=== PATIENT | female | born 1940 | race Native Hawaiian/Other Pacific Islander ===

== ENCOUNTER 2022-03-24 11:38 | Emergency (ER) | payer MEDICARE, OTHER ==
[~2022-03-24] VITALS: Ht 154 cm; Wt 68.0 kg
[2022-03-24 11:45] VITALS: BP 140/73
[2022-03-24] MEDS ORDERED: CYCLOBENZAPRINE 10 MG (FLEXERIL) TAB PO STA (12:04)
--- NOTE | 2022-03-24 12:04 | ED Back Pain ---
General Chief Complaint: Back Problems Stated Complaint: BACK PAIN Nursing Triage Note: Patient has presented to ER by wheel chair with back pain for the last 2 weeks. Patient reports that she just moved to [place] and she was moving boxes 2 weeks ago when her back pain started. She did take tylenol last night for the pain. She has not established with a local doctor and came to ER for evaluation. Source of Information: Patient Exam Limitations: No Limitations History of Present Illness Date Seen by Provider: Mar 24, 2022 Time Seen by Provider: 11:39 Initial Comments 81yoF with PMH of GERD, osteoporosis coming in due to low back pain. 3 weeks ago was moving houses and lifting boxes. She "twisted" wrong and has had pain since then that is intermittent, shooting, severe pain, and nothing seems to really he lp. Tried tylenol and ibuprofen which helped little. Laying flat makes worse. Denies any n/v/d, numbness, bowel, bladder issues. She has had to use a walker due to pain since then. Allergies and Home Medications Allergies Coded Allergies: NSAIDS (Non-Steroidal Anti-Inflamma (Verified Allergy, Unknown, 03/24/22) Patient Home Medication List Home Medication List Reviewed: Yes Cyclobenzaprine HCl (Cyclobenzaprine HCl) 5 Mg Tablet, 5 MG PO TID PRN for SPASMS Prescribed by: GINI CASTELLON on 03/24/22 1222 Lidocaine (Lidocaine 5% Patch) 5 % Adh..patch, 1 EACH TP Q12H PRN for Neuropathic pain Prescribed by: GINI CASTELLON on 03/24/22 1218 Review of Systems Constitutional: No fever EENTM: No blurred vision Respiratory: No cough Cardiovascular: No chest pain Gastrointestinal: No abdominal pain Genitourinary: no symptoms reported Musculoskeletal: back pain Skin: no symptoms reported Psychiatric/Neurological: No Symptoms Reported All Other Systems Reviewed Negative Unless Noted: Yes Past Xtqsmhm-Jzscog-Xjntkr Hx Patient Social History Tobacco Use?: No Use of E-Cig and/or Vaping dev: No Substance use?: No Alcohol Use?: No Past Medical History Surgeries: Yes Hysterectomy Physical Exam Vital Signs Vital Signs - First Documented 03/24/22 11:45 Temp 36.2 Pulse 91 Resp 16 B/P (MAP) 140/73 (95) Pulse Ox 98 O2 Delivery Room Air Capillary Refill : Height, Weight, BMI Height: '" Weight: lbs. oz. kg; 28.00 BMI Method: General Appearance: No Apparent Distress, WD/WN HEENT: PERRL/EOMI, Normal ENT Inspection, Pharynx Normal Neck: Full Range of Motion, Normal Inspection, Non Tender, Supple Cardiovascular: Regular Rate, Rhythm, No Edema, Normal Peripheral Pulses Respiratory: Chest Non Tender, Lungs Clear, Normal Breath Sounds, No Accessory Muscle Use, No Respiratory Distress Gastrointestinal: Normal Bowel Sounds, Non Tender, Soft; No Distended, No Guarding Back: Normal Inspection, No CVA Tenderness, No Vertebral Tenderness, Muscle Spasm Extremity: Normal Capillary Refill, Normal Inspection, Normal Range of Motion, Non Tender, No Calf Tenderness, No Pedal Edema Neurologic/Psychiatric: Alert, Oriented x3, No Motor/Sensory Deficits, Normal Mood/Affect, Other (antalgic gait) Skin: Normal Color, Warm/Dry Lymphatic: No Adenopathy Progress/Results/Core Measures Results/Orders My Orders Orders - GINI CASTELLON MD Cyclobenzaprine Tablet (Flexeril Tablet) (03/24/22 12:04) Gabapentin Capsule/Tablet (Neurontin Cap (03/24/22 12:15) Hydrocodone/Apap 5/325 Tablet (Lortab 5 (03/24/22 12:15) Lumbar Spine 2 Or 3 View (03/24/22 12:04) Medications Given in ED Current Medications Medications Dose Ordered Sig/Jovanny Route Start Time Stop Time Status Last Admin Dose Admin Acetaminophen/ Hydrocodone Bitart 1 ea ONCE ONCE PO 03/24/22 12:15 03/24/22 12:16 DC 03/24/22 12:17 1 EA Gabapentin 100 mg ONCE ONCE PO 03/24/22 12:15 03/24/22 12:16 DC 03/24/22 12:17 100 MG Vital Signs/I&O 03/24/22 11:45 Temp 36.2 Pulse 91 Resp 16 B/P (MAP) 140/73 (95) Pulse Ox 98 O2 Delivery Room Air Blood Pressure Mean: 95 Progress Progress Note : Progress Note 81-year-old female with above history coming in due to low back pain in setting of standing up incorrectly with a box a couple weeks ago. ABCs were intact and vitals were stable on presentation. Physical exam with no midline tenderness, but she does have paraspinal muscular tenderness on exam. Neurovascular exam is otherwise normal. She has no red flags for low back pain. X-ray negative for acute fracture. She does have a new deformity over T12 which is age- indeterminate. She is not tender over this area, clinically this would be chronic, likely related to her osteoporosis. She was given symptomatic management with p.o. medication. I believe she is stable for discharge with outpatient follow-up with orthopedics. She was sent home with strict return precautions Diagnostic Imaging Diagonstic Imaging: Xray (lumbar spine) [facility] [place] [place] NAME: MASON SAENZ [facility] REC#: [id number] PT STATUS: REG ER : 1940 PHYSICIAN: GINI CASTELLON MD ADMIT DATE: 03/24/22/ER FS Draft Date of Exam:03/24/22 LUMBAR SPINE 2 OR 3 VIEW INDICATION: Low back pain, moving boxes two weeks ago when pain started. TECHNIQUE: AP, Lateral and Spot imaging of the lumbar spine. CORRELATION STUDY: CT of 03/07/2019. FINDINGS: Grade 2 spondylolisthesis of L4 on L5. Alignment is otherwise anatomic. There is moderate compression deformity with loss of nearly one-third vertebral body height of superior T12 endplate. Age is indeterminate but is changed from prior imaging. The lumbar vertebral body heights are otherwise maintained. Various degrees of mild disc space narrowing present. Hypertrophic facet arthropathy at the L4-L5 and L5-S1 levels. Prominent vascular calcification. IMPRESSION: 1. Moderate compression deformity of the superior T12 endplate. Age is indeterminate but is new since February 2019. Acute compression is not excluded. Correlation with symptoms. 2. Lumbar spine otherwise demonstrates no acute findings. Dictated on workstation # [id number] Dict: 03/24/22 1229 Trans: 03/24/22 1242 [id number] Interpreted by: TULIO RAO DO Electronically signed by: Departure Impression Primary Impression: Low back pain Qualified Codes: M54.50 - Low back pain, unspecified Disposition: 01 HOME, SELF-CARE Condition: Stable Departure-Patient Inst. Decision time for Depature: 12:40 Referrals: ROLAND CLAIRE MD Patient Instructions: Low Back Pain ED Add. Discharge Instructions: Try to gently twist and stretch as often as you can. The more you are able to move, the time study engineer is going to feel better. I would expect it to slowly get better over the next couple of weeks. Follow-up with the media services specialist, Dr. Claire here in the next week or so if things are not improving. Placed the lidocaine patches where you hurt the worst. You and also try heating pads when you are not using the lidocaine patches. Use the Flexeril very sparingly as it can make you very sedated and can cause falls which she can break things such as your hip. Otherwise try to take Tylenol as needed. I also recommend calling your regular doctor to see if he can get into physical therapy to help with the pain. You can also try massage. Scripts Cyclobenzaprine HCl (Cyclobenzaprine HCl) 5 Mg Tablet 5 MG PO TID PRN for SPASMS for 7 Days, #21 TAB Prov: GINI CASTELLON MD 03/24/22 Lidocaine (Lidocaine 5% Patch) 5 % Adh..patch 1 EACH TP Q12H PRN for Neuropathic pain MDD 2 for 14 Days, #28 PATCH 2 patches max for 12 hours, then 12 hours patch-free period. Prov: GINI CASTELLON MD 03/24/22 GINI CASTELLON MD Mar 24, 2022 12:03
[2022-03-24] MEDS ORDERED: HYDROcodone/APAP 5 MG/325 MG (LORTAB) TAB PO ONE (12:15)
[2022-03-24] MEDS ORDERED: GABAPENTIN 100 MG (NEURONTIN) CAP PO ONE (12:15)
[2022-03-24] MEDS ORDERED: LIDO700A45 TP (12:18)
[2022-03-24] MEDS ORDERED: CYCL5TAB PO ×2 (12:18→12:22)
[2022-03-24] MEDS ORDERED: OXYC5TAB PO (12:18)
--- NOTE | 2022-03-24 12:43 | Diagnostic Imaging Report ---
INDICATION: Low back pain, moving boxes two weeks ago when pain started. TECHNIQUE: AP, Lateral and Spot imaging of the lumbar spine. CORRELATION STUDY: CT of 03/07/2019. FINDINGS: Grade 2 spondylolisthesis of L4 on L5. Alignment is otherwise anatomic. There is moderate compression deformity with loss of nearly one-third vertebral body height of superior T12 endplate. Age is indeterminate but is changed from prior imaging. The lumbar vertebral body heights are otherwise maintained. Various degrees of mild disc space narrowing present. Hypertrophic facet arthropathy at the L4-L5 and L5-S1 levels. Prominent vascular calcification. IMPRESSION: 1. Moderate compression deformity of the superior T12 endplate. Age is indeterminate but is new since February 2019. Acute compression is not excluded. Correlation with symptoms. 2. Lumbar spine otherwise demonstrates no acute findings. Dictated by: Dictated on workstation # [id number]
== END 2022-03-24 13:10 | disposition home or self-care (01) ==
LOC: ER FS 11:39
DX: M54.50 Low back pain, unspecified (principal); X50.1XXA Overexertion from prolonged static or awkward postures, initial encounter
CPT/HCPCS: 72100

== ENCOUNTER → 2022-10-21 | Outpatient (CLI) | payer MEDICARE, OTHER ==
[~2022-10-21] MED LIST: CYCL5TAB PO; LIDO700A45 TP; OXYC5TAB PO
--- NOTE | 2022-10-21 16:26 | Diagnostic Imaging Report ---
INDICATION: 82-year-old female, postmenopausal. Screening for osteoporosis. COMPARISON: None. FINDINGS: AP Spine L1-L4: [BMD (g/cm2): 0.699] [T-Score: -4.2] [Z-Score: na] [BMD Previous: na] [BMD % Change: na] LT Hip Neck: [BMD (g/cm2): 0.752] [T-Score: -2.1] [Z-Score: na] LT Hip Total: [BMD (g/cm2):0.838] [T-Score:-1.3] [Z-Score: na] [BMD Previous: na] [BMD % Change: na] RT Hip Neck: [BMD (g/cm2):0.847] [T-Score:-1.4] [Z-Score:na] RT Hip Total: [BMD (g/cm2):0.873] [T-score:-1.1] [Z-Score:na] [BMD Previous:na] [BMD % Change:na] *Indicates significant change from prior examination based on 95% confidence level. World Health Organization criteria for BMD interpretation classify patients as Normal (T-score at or above -1.0), Osteopenic (T-score between -1.0 and -2.5) or Osteoporotic (T-score at or below -2.5). LIMITATIONS AND MODIFICATION: None. FRACTURE RISK (FRAX SCORE): The ten year probability of (%): Major Osteoporotic Fracture: [22.3] Hip Fracture: [6.7] IMPRESSION: 1. Osteoporosis. 2. Baseline examination. 3. See below National Osteoporosis Foundation guidelines on when to potentially initiate pharmacologic therapy. Based on the National Osteoporosis Foundation Guidelines, pharmacologic treatment should be initiated in any of the following, unless clinical conditions suggest otherwise: * Any patient with prior fragility fracture of the hip or vertebrae. A spine fracture indicates 5X risk for subsequent spine fracture and 2X risk for subsequent hip fracture. * Osteoporosis (T-score <-2.5). * Postmenopausal women and men age 50 and older with low bone mass/osteopenia (T-score between -1.0 and -2.5) by DXA and 10-year major osteoporotic fracture greater than 20% or a 10-year probability of hip fracture greater than 3%. These fracture risks are supplied above in the FRAX score, if applicable. * Clinician judgement and/or patient preferences may indicate treatment for people with 10-year fracture probabilities above or below these levels. Dictated by: Dictated on workstation # [id number]
== END ==
LOC: RAD 10:31
PROVIDERS: ATTEND Nurse Practitioner
DX: M81.0 Age-related osteoporosis without current pathological fracture (principal); I10 Essential (primary) hypertension; E78.00 Pure hypercholesterolemia, unspecified; E03.1 Congenital hypothyroidism without goiter; K21.9 Gastro-esophageal reflux disease without esophagitis; N39.3 Stress incontinence (female) (male)
CPT/HCPCS: 77080

== ENCOUNTER 2023-04-29 18:56 | Emergency (ER) | payer MEDICARE, OTHER ==
[2023-04-29] MEDS ORDERED: ACETAMINOPHEN 500 MG TABLET PO ONE (19:15)
[2023-04-29] MEDS ORDERED: NS IV 1000 ML 1,000 ML IV SCH (19:15)
[2023-04-29 19:24] LABS: BASOPHILS % (AUTO) 0 % (0-10); EOSINOPHILS % (AUTO) 0 % (0-10); HEMATOCRIT 41 % (35-52); HEMOGLOBIN 13.9 g/dL (11.5-16.0); LYMPHOCYTES # (AUTO) 0.6 10^3/uL (1.0-4.0); LYMPHOCYTES % (AUTO) 18 % (12-44); MEAN CORPUSCULAR HEMOGLOBIN 33 pg (25-34); MEAN CORPUSCULAR HGB CONC 34 g/dL (32-36); MEAN CORPUSCULAR VOLUME 97 fL (80-99); MEAN PLATELET VOLUME 8.3 fL (9.0-12.2); MONOCYTES # (AUTO) 0.5 10^3/uL (0.0-1.0); MONOCYTES % (AUTO) 15 % (0-12); NEUTROPHILS # (AUTO) 2.4 10^3/uL (1.8-7.8); NEUTROPHILS % (AUTO) 67 % (42-75); PLATELET COUNT 165 10^3/uL (130-400); WHITE BLOOD COUNT 3.6 10^3/uL (4.3-11.0)
[2023-04-29 19:26] LABS: BILIRUBIN,URINE NEGATIVE (NEGATIVE); CLARITY,URINE CLOUDY; COLOR,URINE YELLOW; GLUCOSE, URINE (UA) NEGATIVE (NEGATIVE); KETONES,URINE 3+ (NEGATIVE); LEUKOCYTE ESTERASE ,URINE NEGATIVE (NEGATIVE); NITRITE,URINE POSITIVE (NEGATIVE); PROTEIN,URINE TRACE (NEGATIVE)
[2023-04-29 19:36] LABS: BACTERIA,URINE LARGE /HPF; RBC,URINE 0-2 /HPF; SQUAMOUS EPITHELIAL CELL,UR 0-2 /HPF
[2023-04-29 19:46] LABS: ALBUMIN 4.1 GM/DL (3.2-4.5); BILIRUBIN,TOTAL 0.5 MG/DL (0.1-1.0); CALCIUM 8.9 MG/DL (8.5-10.1); CREATININE SERUM 0.57 MG/DL (0.60-1.30); MAGNESIUM 2.1 MG/DL (1.6-2.4); POTASSIUM 3.9 MMOL/L (3.6-5.0); TOTAL PROTEIN 6.7 GM/DL (6.4-8.2)
[2023-04-29] MEDS ORDERED: cefTRIAXone IV/IM 1,000 MG in NS (IVPB) 50 ML 50 ML IV STA (20:23)
[2023-04-29] MEDS ORDERED: RX-NIRMATRELVIR/RITONAVIR (PAXLOVID) #30 TABS PO STA (20:33)
[2023-04-29] MEDS ORDERED: CEPH500T PO (20:42)
--- NOTE | 2023-04-29 20:45 | ED General ---
General Chief Complaint: General Problems/Pain Stated Complaint: LETHARGIC,FEVER,NOT EATING/DRINKING Nursing Triage Note: Patient arrival to ED per POV ambulatory into ED and assisted to Rm 5 via WC. Pt has generalized complaints of fatigue, tired, low grade fever, and decreased appetite. Pt returned 2 days ago from a [place] vacation developing these sx at home. Pt felt fine except heat exposure on trip. Pt had a 9 day trip to [place] with walking/hiking in March. Pt has had a temp spike to 101 in last 24 hrs. Source of Information: Patient, Family Exam Limitations: No Limitations History of Present Illness Date Seen by Provider: Apr 29, 2023 Time Seen by Provider: 19:01 Initial Comments See nursing triage not above. This 82-year-old woman is brought to the emergency room by her family with concerns about fever, decreased oral intake, and malaise. She also reports a significant headache. Symptoms have been present for about 2 days. They recently returned from a cruise a few days ago. Prior to that they had been on a trip to [place] where she had done much walking and hiking. Temperature peaked to 101 at home. She has chronic diarrhea which has been worse the last 2 days. They report she got "overheated" 1 day on the cruise in the hot tub and had to be carried out. Temperature at presentation was 99 F. Patient slept most of the day yesterday. She has generalized pain that is chronic but seems to be worse today. She has not been COVID vaccinated. Family member states they have "allergies" at present. Dr. Tabor is her primary care provider. Allergies and Home Medications Allergies Coded Allergies: NSAIDS (Non-Steroidal Anti-Inflamma (Verified Allergy, Unknown, 03/24/22) Patient Home Medication List Home Medication List Reviewed: Yes Alendronate Sodium (Alendronate Sodium) 70 Mg Tablet, (Reported) Entered as Reported by: YEMI BAY on 04/30/2314 Last Action: New Order Amlodipine Besylate (Amlodipine Besylate) 2.5 Mg Tablet, (Reported) Entered as Reported by: YEMI BAY on 04/30/2314 Last Action: New Order Cephalexin (Cephalexin) 500 Mg Tablet, 500 MG PO TID Prescribed by: FERCHO MAC on 04/29/232041 Hyoscyamine Sulfate (Hyoscyamine Sulfate) 0.125 Mg Tab.subl, (Reported) Entered as Reported by: YEMI BAY on 04/30/2315 Last Action: New Order Levothyroxine Sodium (Levothyroxine Sodium) 112 Mcg Tablet, (Reported) Entered as Reported by: YEMI BAY on 04/30/2314 Last Action: New Order Oxybutynin Chloride (Oxybutynin Chloride) 5 Mg Tablet, (Reported) Entered as Reported by: YEMI BAY on 04/30/2314 Last Action: New Order Pantoprazole Sodium (Pantoprazole Sodium) 20 Mg Tablet.dr, (Reported) Entered as Reported by: YEMI BAY on 04/30/2314 Last Action: New Order Simvastatin (Simvastatin) 40 Mg Tablet, (Reported) Entered as Reported by: YEMI BAY on 04/30/2314 Last Action: New Order Sucralfate (Sucralfate) 1 Gram Tablet, (Reported) Entered as Reported by: YEMI BAY on 04/30/2314 Last Action: New Order Discontinued Medications Cyclobenzaprine HCl (Cyclobenzaprine HCl) 5 Mg Tablet, 5 MG PO TID PRN for SPASMS Discontinued Reason: Referral/FU Appt-Addtl Prescribed by: GINI CASTELLON on 03/24/22 1222 Last Action: Discontinued Lidocaine (Lidocaine 5% Patch) 5 % Adh..patch, 1 EACH TP Q12H PRN for Neuropathic pain Discontinued Reason: Referral/FU Appt-Addtl Prescribed by: GINI CASTELLON on 03/24/22 1218 Last Action: Discontinued Review of Systems Review of Systems Constitutional: see HPI EENTM: throat pain Respiratory: no symptoms reported Cardiovascular: no symptoms reported Gastrointestinal: see HPI Genitourinary: no symptoms reported : No Musculoskeletal: see HPI Skin: no symptoms reported Psychiatric/Neurological: See HPI Hematologic/Lymphatic: No Symptoms Reported Immunological/Allergic: no symptoms reported Past Vcrqnwr-Encybv-Btvzkw Hx Patient Social History Tobacco Use?: No Smoking Status: Former Smoker Substance use?: No Alcohol Use?: No Pt feels they are or have been: No Immunizations Up To Date Influenza Vaccine Up-to-Date: No; Not Current First/Initial COVID19 Vaccinat: 11/30/2020 Second COVID19 Vaccination [place]: 01/10/21 Third COVID19 Vaccination Date: 08/01/2021 COVID19 Vaccine Inspector Quality Assurance: #1/#2- Moderna, #3-Pfizer Past Medical History Surgery/Hospitalization HX: Osteoporesis, Arthritis, T&A, Partial Hysterectomy, Cholecystectomy, Hernia repair, Cataracts Surgeries: Yes Hysterectomy, Tonsillectomy Respiratory: No Cardiac: Yes Hypertension Neurological: No : No Genitourinary: No Gastrointestinal: Yes Gastroesophageal Reflux, Chronic Diarrhea Musculoskeletal: Yes Osteoporosis, Arthritis HEENT: No Cancer: No Psychosocial: No Integumentary: No Physical Exam Vital Signs Vital Signs - First Documented 04/29/23 19:02 Temp 37.2 Pulse 95 Resp 20 B/P (MAP) 153/71 (98) Pulse Ox 97 O2 Delivery Room Air Capillary Refill : Less Than 3 Seconds Height, Weight, BMI Height: '" Weight: lbs. oz. kg; 28.00 BMI Method: General Appearance: No Apparent Distress, WD/WN HEENT: PERRL/EOMI, Normal ENT Inspection, Other (oropharynx somewhat dry) Neck: Normal Inspection Respiratory: Lungs Clear, Normal Breath Sounds, No Accessory Muscle Use Cardiovascular: Regular Rate, Rhythm, No Edema, No Murmur Gastrointestinal: Normal Bowel Sounds, Non Tender; No Distended Extremity: Normal Inspection, No Pedal Edema Neurologic/Psychiatric: Alert, Oriented x3, No Motor/Sensory Deficits, Normal Mood/Affect, support manager II-XII Norm as Tested Skin: Normal Color, Warm/Dry Progress/Results/Core Measures Suspected Sepsis SIRS Temperature: Pulse: 95 Respiratory Rate: 20 Laboratory Tests 04/29/23 19:13: White Blood Count 3.6L Blood Pressure 153 /71 Mean: 98 Laboratory Tests 04/29/23 19:13: Creatinine 0.57L, Platelet Count 165, Total Bilirubin 0.5 Results/Orders Lab Results Laboratory Tests Test 04/29/23 19:13 04/29/23 19:19 Range/Units White Blood Count 3.6 L 4.3-11.0 10^3/uL Red Blood Count 4.21 3.80-5.11 10^6/uL Hemoglobin 13.9 11.5-16.0 g/dL Hematocrit 41 35-52 % Mean Corpuscular Volume 97 80-99 fL Mean Corpuscular Hemoglobin 33 25-34 pg Mean Corpuscular Hemoglobin Concent 34 32-36 g/dL Red Cell Distribution Width 12.6 10.0-14.5 % Platelet Count 165 130-400 10^3/uL Mean Platelet Volume 8.3 L 9.0-12.2 fL Immature Granulocyte % (Auto) 1 % Neutrophils (%) (Auto) 67 42-75 % Lymphocytes (%) (Auto) 18 12-44 % Monocytes (%) (Auto) 15 H 0-12 % Eosinophils (%) (Auto) 0 0-10 % Basophils (%) (Auto) 0 0-10 % Neutrophils # (Auto) 2.4 1.8-7.8 10^3/uL Lymphocytes # (Auto) 0.6 L 1.0-4.0 10^3/uL Monocytes # (Auto) 0.5 0.0-1.0 10^3/uL Eosinophils # (Auto) 0.0 0.0-0.3 10^3/uL Basophils # (Auto) 0.0 0.0-0.1 10^3/uL Immature Granulocyte # (Auto) 0.0 0.0-0.1 10^3/uL Sodium Level 136 135-145 MMOL/L Potassium Level 3.9 3.6-5.0 MMOL/L Chloride Level 98 98-107 MMOL/L Carbon Dioxide Level 26 21-32 MMOL/L Anion Gap 12 5-14 MMOL/L Blood Urea Nitrogen 13 7-18 MG/DL Creatinine 0.57 L 0.60-1.30 MG/DL Estimat Glomerular Filtration Rate 90 BUN/Creatinine Ratio 23 Glucose Level 97 70-105 MG/DL Calcium Level 8.9 8.5-10.1 MG/DL Corrected Calcium 8.8 8.5-10.1 MG/DL Magnesium Level 2.1 1.6-2.4 MG/DL Total Bilirubin 0.5 0.1-1.0 MG/DL Aspartate Amino Transf (AST/SGOT) 42 H 5-34 U/L Alanine Aminotransferase (ALT/SGPT) 27 0-55 U/L Alkaline Phosphatase 89 40-136 U/L C-Reactive Protein 2.73 H <0.50 MG/DL Total Protein 6.7 6.4-8.2 GM/DL Albumin 4.1 3.2-4.5 GM/DL Thyroid Stimulating Hormone (TSH) 0.91 0.35-4.94 UIU/ML Free Thyroxine 1.39 0.70-1.48 NG/DL Influenza Type A (RT-PCR) Not Detected Not Detecte Influenza Type B (RT-PCR) Not Detected Not Detecte SARS-CoV-2 RNA (RT-PCR) Detected H Not Detecte Urine Color YELLOW Urine Clarity CLOUDY Urine pH 6.0 5-9 Urine Specific [place] 1.020 1.016-1.022 Urine Protein TRACE H NEGATIVE Urine Glucose (UA) NEGATIVE NEGATIVE Urine Ketones 3+ H NEGATIVE Urine Nitrite POSITIVE H NEGATIVE Urine Bilirubin NEGATIVE NEGATIVE Urine Urobilinogen 0.2 < = 1.0 MG/DL Urine Leukocyte Esterase NEGATIVE NEGATIVE Urine RBC (Auto) TRACE-I H NEGATIVE Urine RBC 0-2 /HPF Urine WBC 5-10 H /HPF Urine Squamous Epithelial Cells 0-2 /HPF Urine Crystals NONE /LPF Urine Bacteria LARGE H /HPF Urine Casts NONE /LPF Urine Mucus SMALL H /LPF Urine Culture Indicated YES My Orders Orders - FERCHO ROSALES MD Cbc With Automated Diff (04/29/23 19:01) Comprehensive Metabolic Panel (04/29/23 19:01) Magnesium (04/29/23 19:01) Ua Culture If Indicated (04/29/23 19:01) Ed Iv/Invasive Line Start (04/29/23 19:01) Thyroid Stimulating Hormone (04/29/23 19:01) Free T4 (Free Thyroxine) (04/29/23 19:01) Crp Fs (04/29/23 19:14) Ed Iv/Invasive Line Start (04/29/23 19:14) Ns Iv 1000 Ml (Sodium Chloride 0.9%) (04/29/23 19:15) Acetaminophen Tablet (Acetaminophen Ta (04/29/23 19:15) Urine Culture (04/29/23 19:19) Covid 19 Inhouse Test (04/29/23 19:45) Influenza A And B By Pcr (04/29/23 19:45) Ceftriaxone Iv/Im (Ceftriaxone Iv/Im) (04/29/23 20:23) Rx-Nirmatrelvir/Ritonavir(Eua) (Rx-Paxlo (04/29/23 20:33) Rx-Nirmatrelvir/Ritonavir(Eua) (Rx-Paxlo (04/29/23 20:56) Medications Given in ED Vital Signs/I&O 04/29/23 04/29/23 19:02 21:50 Temp 37.2 37.2 Pulse 95 75 Resp 20 20 B/P (MAP) 153/71 (98) 133/62 Pulse Ox 97 95 O2 Delivery Room Air Room Air Capillary Refill : Less Than 3 Seconds Blood Pressure Mean: 98 Progress Note : Progress Note Patient was hydrated with a liter of normal saline. Vital signs were stable. Tylenol was given for headache and myalgias. Labs were obtained. CBC demonstrated slight leukopenia and a relative lymphopenia. CBC was otherwise unremarkable. CMP was relatively unremarkable. CRP was slightly elevated. Nasal swabs were positive for COVID-19. Urinalysis demonstrated positive nitrite, leukocyte esterase, WBC, and bacteria suggesting urinary tract infection. All labs were reviewed and interpreted by me. Patient was further treated with Rocephin IV for urinary tract infection. We discussed treatment with Paxlovid. Her medications were reviewed. She was advised to stop atorvastatin while on Paxlovid. She was advised to stop amlodipine if she had blood pressure drops while on Paxlovid. The Paxlovid course was dispensed in the ER and initiated promptly. Patient and family were advised to follow CDC guidelines regarding quarantine. Departure Impression Primary Impression: COVID-19 Additional Impression: Urinary tract infection Qualified Codes: N39.0 - Urinary tract infection, site not specified Disposition: 01 HOME, SELF-CARE Condition: Improved Departure-Patient Inst. Decision time for Depature: 20:41 Referrals: NO,LOCAL PHYSICIAN (PCP/Family) Primary Care Physician Patient Instructions: COVID-19 (DC), Urinary Tract Infection, Adult ED Add. Discharge Instructions: Drink plenty of clear liquids to stay well-hydrated. You may not have much drive to eat and drink while ill with COVID, but you need to continue to push clear liquids. To complete the entire course of Paxlovid. Paxlovid has now been approved by the FDA. Do not stop it early even if you are feeling better. If you have intolerable adverse effects, stop Paxlovid and notify your doctor. Stop atorvastatin while taking Paxlovid. If your blood pressure drops low or you are getting lightheaded while on Paxlovid, stop your amlodipine blood pressure medicine. You may take Tylenol (acetaminophen) up to 1000 mg every 6 hours as needed for pain and fever. Complete the entire course of your antibiotics as prescribed. Follow-up on your urine culture results with a phone call to your primary care provider or the emergency room on Thursday. Monitor your oxygen saturations a few times a day with a pulse oximeter. If you have multiple measurements under 92% or any measurement under 90%, return to the emergency room. Check your oxygen anytime you have increased shortness of breath. You and your close contacts need to follow CDC recommendations for quarantine. Please refer to the CDC site for details. All discharge instructions reviewed with patient and/or family. Voiced understanding. Scripts Cephalexin (Cephalexin) 500 Mg Tablet 500 MG PO TID, #20 TAB Prov: FERCHO ROSALES MD 04/29/23 FERCHO ROSALES MD Apr 29, 2023 20:45
[2023-04-29] MEDS ORDERED: RX-NIRMATRELVIR/RITONAVIR (PAXLOVID) #30 TABS PO ONE (20:56)
[2023-04-29 21:50] VITALS: BP 133/62
[2023-04-29 22:30] LABS: FREE T4 (FREE THYROXINE) 1.39 NG/DL (0.70-1.48)
[2023-04-30] MEDS ORDERED: SUCR1TAB (00:15)
[2023-04-30] MEDS ORDERED: SIMV40TA25 (00:15)
[2023-04-30] MEDS ORDERED: PANT20TA18 (00:15)
[2023-04-30] MEDS ORDERED: LEVO112T55 (00:15)
[2023-04-30] MEDS ORDERED: OXYB5TAB13 (00:15)
[2023-04-30] MEDS ORDERED: ALEN70TA80 (00:15)
[2023-04-30] MEDS ORDERED: AMLO2.5T4 (00:15)
[2023-04-30] MEDS ORDERED: HYOS-19 (00:16)
== END 2023-04-29 21:50 | disposition home or self-care (01) ==
LOC: EDUNIT# 18:56 → ER FS 18:58
DX: U07.1 COVID-19 (principal); N39.0 Urinary tract infection, site not specified; R63.0 Anorexia; Z87.891 Personal history of nicotine dependence; Z88.6 Allergy status to analgesic agent
CPT/HCPCS: 36415; 80053; 81000; 83735; 84439; 84443; 85025; 86141; 87088; 87636

== ENCOUNTER 2023-05-04 21:03 | Emergency (ER) | payer MEDICARE, OTHER ==
[~2023-05-04] VITALS: Ht 157.5 cm; Wt 58.0 kg
[~2023-05-04 21:03] MED LIST changes: +ALEN70TA80; +AMLO2.5T4; +CEPH500T PO; +HYOS-19; +LEVO112T55; +OXYB5TAB13; +PANT20TA18; +SIMV40TA25; +SUCR1TAB
--- NOTE | 2023-05-04 21:08 | ED Fall/Injury ---
General Stated Complaint: FALL,HIP AND ANKLE PAIN History of Present Illness Date Seen by Provider: May 04, 2023 Time Seen by Provider: 21:07 Initial Comments 82-year-old female brought in by EMS following a fall. Patient reports that she is going to her door when she turned around to go back and got something and had a misstep and fell. She is complaining of pain mainly in her right groin with pain when she extends her leg. She also has some pain in her left ankle in her shoulders, diffusely to her back. She has previous fractures in her back from falls. She did not have a syncope event or hit her head. Allergies and Home Medications Allergies Coded Allergies: NSAIDS (Non-Steroidal Anti-Inflamma (Verified Allergy, Unknown, 05/04/23) iodine (Verified Allergy, Unknown, 05/04/23) Patient Home Medication List Home Medication List Reviewed: Yes Alendronate Sodium (Alendronate Sodium) 70 Mg Tablet, (Reported) Entered as Reported by: YEMI BAY on 04/30/2314 Amlodipine Besylate (Amlodipine Besylate) 2.5 Mg Tablet, (Reported) Entered as Reported by: YEMI BAY on 04/30/2314 Cephalexin (Cephalexin) 500 Mg Tablet, 500 MG PO TID Prescribed by: FERCHO MAC on 04/29/232041 Hyoscyamine Sulfate (Hyoscyamine Sulfate) 0.125 Mg Tab.subl, (Reported) Entered as Reported by: YEMI BAY on 04/30/2315 Levothyroxine Sodium (Levothyroxine Sodium) 112 Mcg Tablet, (Reported) Entered as Reported by: YEMI BAY on 04/30/2314 Oxybutynin Chloride (Oxybutynin Chloride) 5 Mg Tablet, (Reported) Entered as Reported by: YEMI BAY on 04/30/2314 Pantoprazole Sodium (Pantoprazole Sodium) 20 Mg Tablet., (Reported) Entered as Reported by: YEMI BAY on 04/30/2314 Simvastatin (Simvastatin) 40 Mg Tablet, (Reported) Entered as Reported by: YEMI BAY on 04/30/2314 Sucralfate (Sucralfate) 1 Gram Tablet, (Reported) Entered as Reported by: YEMI BAY on 04/30/23 0015 Tramadol HCl (Tramadol HCl) 50 Mg Tablet, 50 MG PO Q6H PRN for PAIN Prescribed by: ROBBIN DAY on 05/04/23 2225 Discontinued Medications Cyclobenzaprine HCl (Cyclobenzaprine HCl) 5 Mg Tablet, 5 MG PO TID PRN for SPASMS Discontinued Reason: Referral/FU Appt-Addtl Prescribed by: GINI CASTELLON on 03/24/22 1222 Lidocaine (Lidocaine 5% Patch) 5 % Adh..patch, 1 EACH TP Q12H PRN for Neuropathic pain Discontinued Reason: Referral/FU Appt-Addtl Prescribed by: GINI CASTELLON on 03/24/22 1218 Review of Systems Review of Systems Constitutional: No chills, No fever Eyes: No Symptoms Reported Ears, Nose, Mouth, Throat: no symptoms reported Respiratory: no symptoms reported Cardiovascular: no symptoms reported Genitourinary: no symptoms reported Musculoskeletal: see HPI Skin: no symptoms reported Past Oipiiyz-Whcowq-Kcoqof Hx Immunizations Up To Date First/Initial COVID19 Vaccinat: 11/30/2020 Second COVID19 Vaccination [place]: 01/10/21 Third COVID19 Vaccination Date: 08/01/2021 Past Medical History Surgery/Hospitalization HX: Osteoporesis, Arthritis, T&A, Partial Hysterectomy, Cholecystectomy, Hernia repair, Cataracts Surgeries: Yes Hysterectomy, Tonsillectomy Respiratory: No Cardiac: Yes Hypertension Neurological: No Genitourinary: No Gastrointestinal: Yes Gastroesophageal Reflux, Chronic Diarrhea Musculoskeletal: Yes Osteoporosis, Arthritis HEENT: No Cancer: No Psychosocial: No Integumentary: No Physical Exam Vital Signs Vital Signs - First Documented 05/04/23 21:03 Temp 36.6 Pulse 76 Resp 18 B/P (MAP) 131/73 (92) Pulse Ox 98 O2 Delivery Room Air Capillary Refill : Height, Weight, BMI Height: '" Weight: lbs. oz. kg; 28.00 BMI Method: General Appearance: mild distress, thin Neck: full range of motion, supple Cardiovascular: normal peripheral pulses Respiratory: lungs clear, normal breath sounds Extremities: other (Mild tenderness right ankle, bilateral shoulders, left groin) Neurologic/Psychiatric: alert, normal mood/affect, oriented x 3 Skin: normal color, warm/dry Progress/Results/Core Measures Results/Orders Lab Results Laboratory Tests Test 05/04/23 21:09 Range/Units White Blood Count 6.8 4.3-11.0 10^3/uL Red Blood Count 4.58 3.80-5.11 10^6/uL Hemoglobin 15.1 11.5-16.0 g/dL Hematocrit 43 35-52 % Mean Corpuscular Volume 94 80-99 fL Mean Corpuscular Hemoglobin 33 25-34 pg Mean Corpuscular Hemoglobin Concent 35 32-36 g/dL Red Cell Distribution Width 12.3 10.0-14.5 % Platelet Count 231 130-400 10^3/uL Mean Platelet Volume 8.3 L 9.0-12.2 fL Immature Granulocyte % (Auto) 1 % Neutrophils (%) (Auto) 61 42-75 % Lymphocytes (%) (Auto) 32 12-44 % Monocytes (%) (Auto) 5 0-12 % Eosinophils (%) (Auto) 1 0-10 % Basophils (%) (Auto) 0 0-10 % Neutrophils # (Auto) 4.1 1.8-7.8 10^3/uL Lymphocytes # (Auto) 2.2 1.0-4.0 10^3/uL Monocytes # (Auto) 0.3 0.0-1.0 10^3/uL Eosinophils # (Auto) 0.1 0.0-0.3 10^3/uL Basophils # (Auto) 0.0 0.0-0.1 10^3/uL Immature Granulocyte # (Auto) 0.1 0.0-0.1 10^3/uL Percent Immature Platelet Fraction 1.8 0.0-7.6 % Sodium Level 138 135-145 MMOL/L Potassium Level 3.8 3.6-5.0 MMOL/L Chloride Level 99 98-107 MMOL/L Carbon Dioxide Level 28 21-32 MMOL/L Anion Gap 11 5-14 MMOL/L Blood Urea Nitrogen 10 7-18 MG/DL Creatinine 0.74 0.60-1.30 MG/DL Estimat Glomerular Filtration Rate 80 BUN/Creatinine Ratio 14 Glucose Level 119 H 70-105 MG/DL Calcium Level 10.2 H 8.5-10.1 MG/DL Corrected Calcium 10.0 8.5-10.1 MG/DL Total Bilirubin 0.6 0.1-1.0 MG/DL Aspartate Amino Transf (AST/SGOT) 30 5-34 U/L Alanine Aminotransferase (ALT/SGPT) 24 0-55 U/L Alkaline Phosphatase 78 40-136 U/L Total Protein 6.9 6.4-8.2 GM/DL Albumin 4.3 3.2-4.5 GM/DL My Orders Orders - DAY,ROBBIN L DO Cbc With Automated Diff (05/04/23 21:08) Comprehensive Metabolic Panel (05/04/23 21:08) Pelvis With Right Hip 2-3 View (05/04/23 21:08) Ankle 3 View Left (05/04/23 21:08) Chest 1 View Ap/Pa Only (05/04/23 21:14) Ct Thoracic Spine Wo (05/04/23 21:28) Fentanyl Injection (Fentanyl Injection (05/04/23 22:26) Vital Signs/I&O 05/04/23 21:03 Temp 36.6 Pulse 76 Resp 18 B/P (MAP) 131/73 (92) Pulse Ox 98 O2 Delivery Room Air Diagnostic Imaging Diagonstic Imaging: CT Comments CT THORACIC SPINE WO PROCEDURE: CT thoracic spine without contrast. TECHNIQUE: Multiple axial computerized tomography images were obtained from the base of the thoracic spine to the vertex without intravenous contrast. Auto Exposure Controls were utilized during the CT exam to meet ALARA standards for radiation dose reduction. INDICATION: Fall, back pain. COMPARISON: MRI of the thoracic spine on 03/07/2019 FINDINGS: Acute compression fracture of T12 with 90% height loss. Chronic compression fracture of T7 with 50% height loss. Exaggerated kyphosis of the thoracic alignment. Moderate multilevel disc height loss. Included views of the chest demonstrate bilateral emphysema and scarring. Included views of the abdomen demonstrates no significant abnormality. IMPRESSION: Acute compression fracture of T12 with 90% height loss. Reviewed: Reviewed by Me, Reviewed/Discussed Diagonstic Imaging: Xray Plain Films/CT/US/NM/MRI: ankle Comments Date of Exam:05/04/23 ANKLE 3 VIEW LEFT EXAMINATION: AP, oblique, and lateral views of the left ankle obtained. TECHNIQUE: AP, oblique, and lateral views of the left ankle obtained. HISTORY: Fall, left ankle injury and pain COMPARISON: None available. FINDINGS: Alignment is normal. No fracture is seen. Joint spaces are normal. IMPRESSION: 1. No fracture. Departure Impression Primary Impression: Traumatic compression fracture of T12 thoracic vertebra Qualified Codes: S22.080A - Wedge compression fracture of T11-T12 vertebra, initial encounter for closed fracture Additional Impressions: Fracture closed, ischium Qualified Codes: S32.691A - Other specified fracture of right ischium, initial encounter for closed fracture Fall from standing Qualified Codes: W19.XXXA - Unspecified fall, initial encounter Disposition: HOME, SELF-CARE Condition: Stable Departure-Patient Inst. Referrals: NO,LOCAL PHYSICIAN (PCP) Primary Care Physician JOANN OLIVAREZ MD Patient Instructions: Vertebral Compression Fracture (DC), Pelvic Fracture (DC) Add. Discharge Instructions: Please use walker whenever ambulating for at least the next month. Please wear your TLSO brace that you already have at home for the next month. You can ambulate as tolerated. Please have your x-rays repeated in approximately 1 month to check on healing. Return to the ER if pain gets worse or if you have a repeat fall for further evaluation. Ice for the next 24 hours then warm moist heat to the affected area. You may try 4% topical lidocaine with menthol or Voltaren cream to affected area to help with pain. You may bear weight on the right leg as you tolerate. Scripts Tramadol HCl (Tramadol HCl) 50 Mg Tablet 50 MG PO Q6H PRN for PAIN for 3 Days, #15 TAB 0 Refills Prov: ROBBIN DAY DO 05/04/23 ROBBIN DAY DO May 04, 2023 21:08
[2023-05-04 21:16] LABS: BASOPHILS % (AUTO) 0 % (0-10); EOSINOPHILS # (AUTO) 0.1 10^3/uL (0.0-0.3); EOSINOPHILS % (AUTO) 1 % (0-10); HEMATOCRIT 43 % (35-52); HEMOGLOBIN 15.1 g/dL (11.5-16.0); LYMPHOCYTES # (AUTO) 2.2 10^3/uL (1.0-4.0); LYMPHOCYTES % (AUTO) 32 % (12-44); MEAN CORPUSCULAR HEMOGLOBIN 33 pg (25-34); MEAN CORPUSCULAR HGB CONC 35 g/dL (32-36); MEAN CORPUSCULAR VOLUME 94 fL (80-99); MEAN PLATELET VOLUME 8.3 fL (9.0-12.2); MONOCYTES # (AUTO) 0.3 10^3/uL (0.0-1.0); MONOCYTES % (AUTO) 5 % (0-12); NEUTROPHILS # (AUTO) 4.1 10^3/uL (1.8-7.8); NEUTROPHILS % (AUTO) 61 % (42-75); PLATELET COUNT 231 10^3/uL (130-400); WHITE BLOOD COUNT 6.8 10^3/uL (4.3-11.0)
[2023-05-04 21:37] LABS: ALBUMIN 4.3 GM/DL (3.2-4.5); BILIRUBIN,TOTAL 0.6 MG/DL (0.1-1.0); CALCIUM 10.2 MG/DL (8.5-10.1); CREATININE SERUM 0.74 MG/DL (0.60-1.30); POTASSIUM 3.8 MMOL/L (3.6-5.0); TOTAL PROTEIN 6.9 GM/DL (6.4-8.2)
--- NOTE | 2023-05-04 21:59 | Diagnostic Imaging Report ---
PROCEDURE: CT thoracic spine without contrast. TECHNIQUE: Multiple axial computerized tomography images were obtained from the base of the thoracic spine to the vertex without intravenous contrast. Auto Exposure Controls were utilized during the CT exam to meet ALARA standards for radiation dose reduction. INDICATION: Fall, back pain. COMPARISON: MRI of the thoracic spine on 03/07/2019 FINDINGS: Acute compression fracture of T12 with 90% height loss. Chronic compression fracture of T7 with 50% height loss. Exaggerated kyphosis of the thoracic alignment. Moderate multilevel disc height loss. Included views of the chest demonstrate bilateral emphysema and scarring. Included views of the abdomen demonstrates no significant abnormality. IMPRESSION: Acute compression fracture of T12 with 90% height loss. Dictated by: Dictated on workstation # [id number]
--- NOTE | 2023-05-04 22:05 | Diagnostic Imaging Report ---
EXAMINATION: AP, oblique, and lateral views of the left ankle obtained. TECHNIQUE: AP, oblique, and lateral views of the left ankle obtained. HISTORY: Fall, left ankle injury and pain COMPARISON: None available. FINDINGS: Alignment is normal. No fracture is seen. Joint spaces are normal. IMPRESSION: 1. No fracture. Dictated by: Dictated on workstation # [id number]
[2023-05-04] MEDS ORDERED: TRM50T PO (22:24)
[2023-05-04] MEDS ORDERED: fentaNYL INJECTION 100 MCG/2 ML VIAL IVP STA (22:26)
--- NOTE | 2023-05-04 22:30 | Diagnostic Imaging Report ---
EXAMINATION: AP, crosstable views of the right hip obtained. TECHNIQUE: AP, crosstable views of the right hip obtained. HISTORY: Fall, right hip pain COMPARISON: None available. FINDINGS: Acute mildly displaced fracture of the superior pubic ramus and of the inferior pubic ramus. No fracture of the right femur. The right hip joint is maintained. There is a small gas is nondistended. IMPRESSION: Acute mildly displaced fracture of the right superior-inferior pubic rami. Dictated by: Dictated on workstation # [id number]
--- NOTE | 2023-05-04 22:35 | Diagnostic Imaging Report ---
CHEST 1 VIEW AP/PA ONLY INDICATION: Fall, chest pain. COMPARISON: None. FINDINGS: Lungs: Low lung volume. No focal consolidation. Pleura: No pleural effusion or pneumothorax. Heart and Mediastinum: Cardiomegaly with pulmonary vascular congestion Osseous Structures and Soft Tissues: No acute osseous abnormality. Normal soft tissues. Multiple chronic left-sided rib fractures. IMPRESSION: Cardiomegaly with pulmonary vascular congestion. No focal consolidation or adrianne pulmonary edema. Dictated by: Dictated on workstation # [id number]
[2023-05-04 22:44] VITALS: BP 148/69
== END 2023-05-04 22:44 | disposition home or self-care (01) ==
LOC: EDUNIT# 21:03 → ER FS 21:04
DX: S22.088A Other fracture of T11-T12 vertebra, initial encounter for closed fracture (principal); S32.602A Unspecified fracture of left ischium, initial encounter for closed fracture; M25.511 Pain in right shoulder; M25.512 Pain in left shoulder; M25.572 Pain in left ankle and joints of left foot; Z88.6 Allergy status to analgesic agent; W18.30XA Fall on same level, unspecified, initial encounter
CPT/HCPCS: 36415; 71045; 72128; 73502; 73610; 80053; 85025